=== PATIENT | male | born 1990 | race African-American/Black ===

== ENCOUNTER 2017-08-12 05:34 | Emergency (ER) | payer OTHER ==
[~2017-08-12] VITALS: Ht 182.9 cm; Wt 99.8 kg
[2017-08-12 06:23] LABS: URINE BILIRUBIN NEGATIVE (Negative); URINE BLOOD NEGATIVE (Negative); URINE CLARITY CLEAR; URINE COLOR YELLOW; URINE GLUCOSE-RANDOM NEGATIVE (Negative); URINE KETONES NEGATIVE (Negative); URINE LEUKOCYTES-REFLEX NEGATIVE (Negative); URINE NITRITE-REFLEX NEGATIVE (Negative); URINE PROTEIN NEGATIVE (Negative); URINE SPECIFIC GRAVITY <= 1.005 (1.005-1.030); URINE UROBILINOGEN 0.2 E.U./dl (0.2-1.0)
[2017-08-12 06:36] LABS: ABSOLUTE EOSINOPHILS 0.1 thou/uL (0.0-0.7); ABSOLUTE LYMPHOCYTES 2.6 thou/uL (0.8-5.3); ABSOLUTE MONOCYTES 0.6 thou/uL (0.0-1.2); ABSOLUTE NEUTROPHILS 4.6 thou/uL (1.6-8.1); BASOPHILS 0.6 %; EOSINOPHILS 1.1 %; HEMATOCRIT 41.8 % (42.0-52.0); HEMOGLOBIN 14.2 gm/dL (14.0-18.0); LYMPHOCYTES 32.4 %; MCH 30.4 pg (26.0-34.0); MCV 89.5 fL (80.0-100.0); MONOCYTES 7.2 %; MPV 7.4 fl. (7.2-11.1); NUCLEATED RBCS 0 /100WBC; PLATELET COUNT* 315 thou/uL (150-400); POLYS 58.7 %; RBC 4.67 mil/uL (4.50-6.00); RDW-CV 13.4 % (10.5-14.5); WBC 7.9 thou/uL (4.0-11.0)
[2017-08-12 06:39] LABS: CALCIUM 8.8 mg/dL (8.5-10.1); CREATININE 0.9 mg/dL (0.6-1.3); POTASSIUM 4.1 mmol/L (3.5-5.1)
[2017-08-12 06:44] LABS: ALBUMIN 3.8 g/dL (3.4-5.0); TOTAL BILIRUBIN 0.2 mg/dL (<0.1-1.0); TOTAL PROTEIN 7.5 g/dL (6.4-8.2)
[2017-08-12 06:51] VITALS: BP 136/74
--- NOTE | 2017-08-12 15:21 | EKG ---
[place] [address] ELECTROCARDIOGRAM REPORT Name: BAILEY LEI Room: [facility]#: [id number] Admission: 08/12/17 Attend Phys: Discharge: 08/12/17 Date of : 89 Report #: [id number] THIS REPORT FOR: //name// [facility] ED Test Date: 2017-08-12 Test Time: 06:20:18 Pat Name: BAILEY LEI Department: Room: Gender: M Recreation Instructor: KATIE : 1990 Requested By: Fabricio Valencia Order Number: [id number] MD: Servando Garnica Measurements Intervals [place] Rate: 65 P: 56 MT: 150 QRS: 73 QRSD: 92 T: 30 QT: 362 QTc: 377 Interpretive Statements Sinus rhythm ST elev, probable normal early repol pattern No previous ECG available for comparison Electronically Signed On 08-12-2017 15:21:14 DIRECTOR [employer] by Servando Garnica [email or web address] <ELECTRONICALLY SIGNED> By: Servando Garnica MD, [facility] 08/12/17 1521 0620 9 Servando Garnica MD, FACC /EPI
== END 2017-08-12 06:51 | disposition home or self-care (01) ==
LOC: M.ERS 05:34
PROVIDERS: Family Medicine
DX: R42 Dizziness and giddiness (principal); F17.210 Nicotine dependence, cigarettes, uncomplicated

== ENCOUNTER → 2017-08-26 | Outpatient (CLI) | payer OTHER | LOC: M.ULTRA 08-22 07:30 | DX: N50.811 Right testicular pain (principal) ==